=== PATIENT | male | born 1990 | race Caucasian/White ===

== ENCOUNTER 2018-10-18 10:49 | Emergency (ER) | payer BC, MEDICAID ==
[2018-10-18 10:49] VITALS: BMI 22.3
[2018-10-18 10:57] VITALS: RESP 20
[2018-10-18] MEDS ORDERED: Bacitracin 500 Units/gm Oint Foilpak UD TOP ONE (11:21)
--- NOTE | 2018-10-18 12:00 | C.PDOC ---
History Of Present Illness 28 y/o male presents to the ER for evaluation of abrasions to the head and the hands s/p fall approximately half hour [employer]. Patient states that he passed out during the fall. Patient denies having headache, dizziness, weakness, and numbness. - HPI Time Seen by Provider: 10/18/18 11:15 Chief Complaint (Nursing): Trauma History Per: Patient History/Exam Limitations: no limitations Onset/Duration Of Symptoms: Days Severity: Moderate Past Medical History Reviewed: Historical Data, Nursing Documentation, Vital Signs Vital Signs: Last Vital Signs Temp 97.7 F 10/18/18 10:57 Pulse 74 10/18/18 10:57 Resp 20 10/18/18 10:57 BP 118/73 10/18/18 10:57 Pulse Ox 96 10/18/18 10:57 - Medical History PMH: No Chronic Diseases Other Surgeries: Hx of surgeries - [facility] Procedures TETANUS TOXOID ADMINIST (05/29/13) Family History: States: No Known Family Hx - Social History Hx Alcohol Use: No Hx Substance Use: Yes (recovered addict) - Immunization History Hx Tetanus Toxoid Vaccination: No Review Of Systems Except As Marked, All Systems Reviewed And Found Negative. Constitutional: Negative for: Fever, Chills Gastrointestinal: Negative for: Nausea, Vomiting Skin: Positive for: Other (abrasions to head and hands) Neurological: Negative for: Weakness, Numbness, Headache, Dizziness Physical Exam - Physical Exam Appears: No Acute Distress, Other (intoxicated) Skin: Normal Color, Warm, Dry, Other (abrasions to dorsal aspect of bilateral hands) Head: Normacephalic, Swelling (frontal swelling), Abrasion (abrasion to right forehead) Eye(s): bilateral: Normal Inspection, PERRL, EOMI Nose: Normal Oral Mucosa: Moist Tongue: Normal Appearing Lips: Swelling (mild swelling to left lower lip), No Laceration Neck: Supple Chest: Symmetrical Cardiovascular: Rhythm Regular Respiratory: Normal Breath Sounds, No Rales, No Rhonchi, No Wheezing Extremity: Normal ROM, No Tenderness, No Swelling Neurological/Psych: Oriented x3, Normal Speech ED Course And Treatment O2 Sat by Pulse Oximetry: 96 (RA) Pulse Ox Interpretation: Normal Medical Decision Making Medical Decision Making: Impression: Head Injury, Abrasions to Hands Plan: * CT-Head Progress: 1232 CT reviewed with no ICH or other abnormality Patient remained alert and oriented in no distress. Explained results to patient. Recommend rest and analgesics Disposition Counseled Patient/Family Regarding: Diagnosis, Need For Followup - Disposition Referrals: [facility] [Outside] [facility] [Outside] Disposition: HOME/ ROUTINE Disposition Time: 12:32 Condition: STABLE Additional Instructions: Your CT of head was normal Take Tylenol or Motrin for any pain Keep wounds clean and dry can apply topical ointment Instructions: Head Injury (ED) Forms: [email or web address] (Estonian) - POA Present On Arrival: None - Clinical Impression Clinical Impression: Contusion of head, Abrasion hand, Accidental fall - PA / RISK AND INSURANCE MANAGER / Resident Statement MD/DO has reviewed & agrees with the documentation as recorded. - Scribe Statement The provider has reviewed the documentation as recorded by the Scribe Gary Collazo Provider Attestation All medical record entries made by the Scribe were at my direction and personally dictated by me. I have reviewed the chart and agree that the record accurately reflects my personal performance of the history, physical exam, medical decision making, and the department course for this patient. I have also personally directed, reviewed, and agree with the discharge instructions and disposition.
[2018-10-18] MEDS ORDERED: Bacitracin 500 Units/gm Oint Foilpak UD ONE (12:17)
--- NOTE | 2018-10-18 12:19 | CT ---
Date of service: 10/18/2018 PROCEDURE: CT HEAD WITHOUT CONTRAST. HISTORY: frontal hematoma from fall, reports LOC COMPARISON: None available. TECHNIQUE: Axial computed tomography images were obtained through the head/brain without intravenous contrast. Radiation dose: Total exam DLP = 851.54 mGy-cm. This CT exam was performed using one or more of the following dose reduction techniques: Automated exposure control, adjustment of the mA and/or kV according to patient size, and/or use of iterative reconstruction technique. FINDINGS: HEMORRHAGE: No intracranial hemorrhage. BRAIN: No mass effect or edema. No atrophy or chronic microvascular ischemic changes. VENTRICLES: Unremarkable. No hydrocephalus. CALVARIUM: Unremarkable. PARANASAL SINUSES: Unremarkable as visualized. No significant inflammatory changes. MASTOID AIR CELLS: Unremarkable as visualized. No inflammatory changes. OTHER FINDINGS: None. IMPRESSION: Normal CT of the Head. No intracranial hemorrhage or mass effect. No calvarial fracture.
[2018-10-18 12:54] VITALS: BP 94/53; PULSE 56; TEMP 97.8
[2018-10-18 15:54] VITALS: O2SAT 96
== END 2018-10-18 12:53 | disposition home or self-care (01) ==
LOC: C.ER 10:49
DX: S00.83XA Contusion of other part of head, initial encounter (principal); S60.512A Abrasion of left hand, initial encounter; S60.511A Abrasion of right hand, initial encounter; W19.XXXA Unspecified fall, initial encounter